=== PATIENT | female | born 1985 | race African-American/Black ===

== ENCOUNTER 2018-04-09 09:43 | Emergency (ER) | payer BC, MEDICAID ==
[~2018-04-09] VITALS: Ht 160 cm; Wt 92.4 kg
[2018-04-09 10:59] LABS: BASOPHILS # (AUTO) 0.03 x10^3/uL (0-0.1); BASOPHILS % (AUTO) 0 % (0-1); EOSINOPHILS # (AUTO) 0.14 x10^3/uL (0-0.4); EOSINOPHILS % (AUTO) 2 % (1-7); LYMPHOCYTES # (AUTO) 2.28 x10^3/uL (1-3.4); LYMPHOCYTES % (AUTO) 36 % (22-44); MD NO; MEAN CORPUSCULAR HEMOGLOBIN 31.3 pg (27.0-34.8); MEAN CORPUSCULAR HGB CONC 34.5 g/dL (32.4-35.8); MEAN CORPUSCULAR VOLUME 90.8 fL (80-100); MEAN PLATELET VOLUME 8.1 fL (7.4-10.4); MONOCYTES # (AUTO) 0.51 x10^3/uL (0.2-0.8); MONOCYTES % (AUTO) 8 % (2-9); NEUTROPHILS % (AUTO) 54 % (42-75); PLATELET COUNT 433 x10^3/uL (130-400); RED BLOOD COUNT 3.81 x10^6/uL (3.82-5.3); RED CELL DISTRIBUTION WIDTH 13.6 % (9.6-15.2)
[2018-04-09 11:06] LABS: ALBUMIN 3.3 g/dL (3.4-5.0); ANION GAP 8 mmol/L (5-15); CALCIUM 8.5 mg/dL (8.5-10.1); CHLORIDE 106 mmol/L (98-107); CREATININE 0.83 mg/dL (0.55-1.02)
[2018-04-09 11:13] LABS: INTERNATIONAL NORMALIZED RATIO 1.01 (0.93-1.1); PROTHROMBIN TIME 10.5 Seconds (9.6-11.5)
[2018-04-09] MEDS ORDERED: LYSI500T PO (11:43)
[2018-04-09] MEDS ORDERED: ST.300CA PO (11:43)
[2018-04-09 12:56] VITALS: BP 111/54
== END 2018-04-09 13:02 | disposition home or self-care (01) ==
LOC: ED 12:07
DX: N92.4 Excessive bleeding in the premenopausal period (principal); N93.8 Other specified abnormal uterine and vaginal bleeding
CPT/HCPCS: 36415; 80048; 82040; 84703; 85025; 85610; 93005; 99285

== ENCOUNTER 2018-05-22 06:36 | Emergency (ER) | payer BC ==
[~2018-05-22] VITALS: Ht 160 cm; Wt 86.0 kg
[~2018-05-22 06:36] MED LIST: LYSI500T PO; ST.300CA PO
[2018-05-22 07:17] LABS: BASOPHILS # (AUTO) 0.03 x10^3/uL (0-0.1); BASOPHILS % (AUTO) 1 % (0-1); EOSINOPHILS # (AUTO) 0.14 x10^3/uL (0-0.4); EOSINOPHILS % (AUTO) 3 % (1-7); LYMPHOCYTES # (AUTO) 1.57 x10^3/uL (1-3.4); LYMPHOCYTES % (AUTO) 34 % (22-44); MD NO; MEAN CORPUSCULAR HEMOGLOBIN 29.5 pg (27.0-34.8); MEAN CORPUSCULAR HGB CONC 33.3 g/dL (32.4-35.8); MEAN CORPUSCULAR VOLUME 88.5 fL (80-100); MEAN PLATELET VOLUME 8.2 fL (7.4-10.4); MONOCYTES # (AUTO) 0.53 x10^3/uL (0.2-0.8); MONOCYTES % (AUTO) 12 % (2-9); NEUTROPHILS # (AUTO) 2.37 x10^3/uL (1.8-6.8); NEUTROPHILS % (AUTO) 51 % (42-75); PLATELET COUNT 501 x10^3/uL (130-400); RED BLOOD COUNT 3.79 x10^6/uL (3.82-5.3); RED CELL DISTRIBUTION WIDTH 13.1 % (9.6-15.2)
[2018-05-22 07:28] LABS: ALBUMIN 3.3 g/dL (3.4-5.0); ANION GAP 4 mmol/L (5-15); CALCIUM 8.7 mg/dL (8.5-10.1); CHLORIDE 109 mmol/L (98-107); CREATININE 0.85 mg/dL (0.55-1.02)
[2018-05-22 09:31] VITALS: BP 98/64
== END 2018-05-22 09:56 | disposition home or self-care (01) ==
LOC: ED 09:35
DX: N94.4 Primary dysmenorrhea (principal)
CPT/HCPCS: 36415; 76830; 80048; 82040; 84703; 85025; 99285

== ENCOUNTER 2018-11-17 12:20 | Emergency (ER) | payer BC ==
[~2018-11-17] VITALS: Ht 160 cm; Wt 89.3 kg
[2018-11-17 13:11] VITALS: BP 109/80
[2018-11-17] MEDS ORDERED: DIPH,PERTUSS(ACELL),TET VAC/PF 0.5 ML IM-VACC ONE ×2 (13:29→13:30)
--- NOTE | 2018-11-17 13:43 | NUR ---
BURN ON RIGHT LATERAL THIGH. PT HAS OPEN TO AIR FOR COMFORT. MEDICATED PER ORDERS
[2018-11-17] MEDS ORDERED: SILVER SULF. CRM 1% , 25GM ONE (14:06)
--- NOTE | 2018-11-17 14:11 | NUR ---
Patient/Caregiver given discharge instructions and they have confirmed that they understand the instructions. Patient ambulatory with steady gait.
[2018-11-17] MEDS ORDERED: SILVER SULF. CRM 1% , 25GM TP ONE (14:30)
== END 2018-11-17 14:14 | disposition home or self-care (01) ==
LOC: ED 14:05
DX: T24.111A Burn of first degree of right thigh, initial encounter (principal); X08.8XXA Exposure to other specified smoke, fire and flames, initial encounter; Y93.89 Activity, other specified; Y92.89 Other specified places as the place of occurrence of the external cause; Y99.8 Other external cause status
CPT/HCPCS: 16000; 90471; 90715